=== PATIENT | female | born 1975 | race Caucasian/White ===

== ENCOUNTER → 2016-11-17 | Outpatient (CLI) | payer BC ==
[~2016-11-17] MED LIST: ALBU18HF2 ORAL INH; BUME1TAB17 PO; CARV3.12 PO; CETI10CA19 PO; FOLI-75; LEVO50TA4 PO; METO5TAB7 PO; POTA20TA10 PO; RANI150T12 PO; TRAM50TA4 PO; WARF2.5T73 PO; WARF5TAB6 PO
--- NOTE | 2016-11-18 11:01 | DI ---
Indication: ITS.REASON: M54.5 LOW BACK PAIN PROCEDURE: LUMBAR SPINE COMP W/O BEND: Encounter: Initial Comparison: None Findings: Essure implants noted in the pelvis. No acute fracture identified. Surgical clips projecting over the left mid lumbar spine. No acute fracture or subluxation. Moderate to large amount of stool throughout the colon. The oblique views show no definite pars defects. Moderate disk space narrowing at L4-L5. Mild degenerative facet disease at L4-S1. Impression: Degenerative disk and facet disease of the lower lumbar spine. .
== END ==
LOC: IMA 16:39
PROVIDERS: ATTEND Family Medicine
DX: M51.36 Other intervertebral disc degeneration, lumbar region (principal); M47.817 Spondylosis without myelopathy or radiculopathy, lumbosacral region; M54.5 Low back pain